=== PATIENT | female | born 1975 | race Caucasian/White ===

== ENCOUNTER → 2024-12-07 07:57 | Outpatient (REF) | payer OTHER, SELFPAY | LOC: RAD 07:57 | PROVIDERS: ATTENDING PHYSICIAN Student in an Organized Health Care Education/Training Program; FAMILY PHYSICIAN Physician Assistant | DX: D72.810 Lymphocytopenia (principal); I73.00 Raynaud's syndrome without gangrene; R76.8 Other specified abnormal immunological findings in serum; R77.8 Other specified abnormalities of plasma proteins | CPT/HCPCS: 94727; 94729; 71046; 88738; 94060 ==

== ENCOUNTER → 2025-04-28 09:05 | Outpatient (REF) | payer OTHER, SELFPAY | LOC: RCS 09:05 | PROVIDERS: ATTENDING PHYSICIAN Student in an Organized Health Care Education/Training Program; FAMILY PHYSICIAN Physician Assistant | DX: D72.810 Lymphocytopenia (principal); I73.00 Raynaud's syndrome without gangrene; J45.909 Unspecified asthma, uncomplicated; R76.8 Other specified abnormal immunological findings in serum; R77.8 Other specified abnormalities of plasma proteins | CPT/HCPCS: 93306 ==